=== PATIENT | male | born 1990 | race African-American/Black ===

== ENCOUNTER 2020-04-02 18:49 | Emergency (ER) | payer SELFPAY ==
[~2020-04-02] VITALS: Ht 180.3 cm; Wt 66.2 kg
[2020-04-02 19:07] VITALS: BP 150/79; Ht 180.3 cm; Wt 66.2 kg
[2020-04-02 20:03] LABS: UA SPECIFIC GRAVITY >=1.030 (1.005-1.035); microscopic required? YES; urine erythrocyte NEGATIVE (NEGATIVE)
== END 2020-04-02 20:49 | disposition home or self-care (01) ==
LOC: ED 18:49
PROVIDERS: Emergency Medicine
DX: N48.89 Other specified disorders of penis (principal); J45.909 Unspecified asthma, uncomplicated; Z91.010 Allergy to peanuts
CPT/HCPCS: 87491; 87591; J1885